=== PATIENT | female | born 1965 | race Caucasian/White ===

== ENCOUNTER 2017-01-23 12:28 | Emergency (ER) | payer MEDICAID ==
[~2017-01-23] VITALS: Ht 149.9 cm; Wt 58.0 kg
[2017-01-23 12:35] VITALS: Ht 149.9 cm; Wt 58.0 kg
--- NOTE | 2017-01-23 13:57 | RADRPT ---
PROCEDURE: US orbits. CLINICAL INDICATION: Bilateral visual disturbance. TECHNIQUE: High-resolution sonography of the orbits was performed in the axial and sagittal planes . COMPARISON: None. FINDINGS: There is mild right vitreous hemorrhage with subtle region of increased echogenicity. The right glob e is otherwise normal with no evidence of retinal detachment. The left globe is abnormal with a linear region in the posterior chamber posteriorly consistent with retinal detachment. There is mild associated vitreous hemorrhage. IMPRESSION: 1. Mild right vitreous hemorrhage. 2. Left vitreous hemorrhage and retinal detachment. RPTAT: QQ .Nura Walters MD, MD Date Time Electronically viewed and signed by .Nura Walters MD, MD on 01/23/2017 13:57 .R/
[2017-01-23 16:46] LABS: BASOPHIL # 0.1 10^3/ul (0.0-0.1); BASOPHILS % 0.6 % (0.0-2.0); EOSINOPHILS # 0.3 10^3/ul (0.0-0.5); EOSINOPHILS % 3.4 % (0.0-7.0); HEMATOCRIT 36.1 % (37.0-47.0); HEMOGLOBIN 12.1 g/dl (12.0-16.0); LYMPHOCYTES # 3.2 10^3/ul (0.8-2.9); LYMPHOCYTES % 40.3 % (15.0-51.0); MEAN CORPUSCULAR HGB CONC 33.5 g/dl (32.0-37.0); MEAN CORPUSCULAR VOLUME 83.6 fl (82.0-101.0); MEAN PLATELET VOLUME 11.2 fl (7.4-10.4); MONOCYTE # 0.6 10^3/ul (0.3-0.9); MONOCYTES % 7.7 % (0.0-11.0); NEUTROPHIL # 3.8 10^3/ul (1.6-7.5); NEUTROPHILS % 47.8 % (39.0-77.0); PLATELET COUNT 322 10^3/UL (140-415); RED BLOOD COUNT 4.32 10^6/ul (4.20-5.40); RED CELL DISTRIBUTION WIDTH 12.6 % (11.5-14.5)
[2017-01-23 18:17] LABS: INR 0.92; PROTIME 12.4 Sec (12.2-14.2)
[2017-01-23 18:18] LABS: PARTIAL THROMBOPLASTIN TIME 28.6 Sec (25.0-35.0)
--- NOTE | 2017-01-23 19:30 | ERD ---
ER Documentation Chief Complaint Chief Complaint BIB SELF C/O BILATERAL BLURRY VISION. HX OF DM. REFERRED HERE FOR [facility] YONAL HPI This 51-year-old female presents for blurry vision in both eyes going on for several years. She is a diabetic female. Today the patient seems to be worse than usual. Has had no headaches or eye pain. Blood sugars have been controlled. ROS All systems reviewed and are negative except as per history of present illness. Allergies Allergies: Coded Allergies: No Known Allergy (Unverified , 01/23/17) PMhx/Soc History of Surgery: No Anesthesia Reaction: No Hx Neurological Disorder: No Hx Respiratory Disorders: No Hx Cardiac Disorders: No Hx Psychiatric Problems: No Hx Miscellaneous Medical Probl: Yes (DM,HIGH CHOLESTEROL) Hx Alcohol Use: No Hx Substance Use: No Hx Tobacco Use: No Smoking Status: Never smoker Physical Exam Vitals Vital Signs Date Time Temp Pulse Resp B/P Pulse Ox O2 Delivery O2 Flow Rate FiO2 01/23/17 15:27 97.6 66 20 134/72 99 Room Air 01/23/17 12:35 97.6 102 20 134/76 99 Physical Exam Const: [] No distress Head: Atraumatic Eyes: Normal Conjunctiva, funduscopic exam normal except for mild opacity in both eyes when trying to examine retina. Vasculature appears within normal limits. EOMI, PERRLA ENT: Normal External Ears, Nose and Mouth.. Resp: Clear to auscultation bilaterally Cardio: Regular rate and rhythm, no murmurs Neur: Awake and alert 3, no focal deficits by normal ambulation and from bathroom without difficulty Psych: Normal Mood and Affect Result Diagram: 01/23/17 1630 Results 24 hrs Laboratory Tests Test 01/23/17 13:26 01/23/17 16:30 Bedside Glucose 167mg/dL White Blood Count 8.010^3/ul Red Blood Count 4.3210^6/ul Hemoglobin 12.1g/dl Hematocrit 36.1% Mean Corpuscular Volume 83.6fl Mean Corpuscular Hemoglobin 28.0pg Mean Corpuscular Hemoglobin Concent 33.5g/dl Red Cell Distribution Width 12.6% Platelet Count 94872^3/UL Mean Platelet Volume 11.2fl Neutrophils % 47.8% Lymphocytes % 40.3% Monocytes % 7.7% Eosinophils % 3.4% Basophils % 0.6% Nucleated Red Blood Cells % 0.0/100WBC Neutrophils # 3.810^3/ul Lymphocytes # 3.210^3/ul Monocytes # 0.610^3/ul Eosinophils # 0.310^3/ul Basophils # 0.110^3/ul Nucleated Red Blood Cells # 0.010^3/ul Prothrombin Time 12.4Sec Prothrombin Time Ratio 1.0 INR International Normalized Ratio 0.92 Activated Partial Thromboplast Time 28.6Sec Procedures/MDM Appearing vitreous hemorrhage bilaterally as well as a retinal detachment of left eye. I was expecting to have diabetic retinopathy as this has been a chronic elevation however this is an emergent condition. There is no ophthalmology at this facility and so patient has been attempted to be transferred. All [facility] including [facility] [place] to have no beds. [facility] was called and they do not currently have beds. [facility] was called and they do not currently have capacity. Orbital ultrasound interpretation: Bilateral vitreous hemorrhage with left retinal detachment. Departure Diagnosis: Primary Impression: Vitreous hemorrhage, bilateral Additional Impression: Retinal detachment, left Condition: Serious MIKE SWIFT DO Jan 23, 2017 19:30
[2017-01-23] MEDS ORDERED: ATOR20TA38 PO (21:30)
[2017-01-23] MEDS ORDERED: METF1000 PO (21:30)
[2017-01-23] MEDS ORDERED: GLIP2.5T3 PO (21:30)
[2017-01-23] MEDS ORDERED: TEMA7.5C PO ×2 (21:34)
[2017-01-23] MEDS ORDERED: FAMO40OR4 PO (21:34)
[2017-01-23 23:02] VITALS: BP 122/63; PULSE 71; RESP 20; TEMP 97.6
== END 2017-01-23 23:16 | disposition left against medical advice (07) ==
LOC: E/R 12:28
DX: H43.13 Vitreous hemorrhage, bilateral (principal); H33.22 Serous retinal detachment, left eye; E11.9 Type 2 diabetes mellitus without complications
CPT/HCPCS: 36415; 76536; 82962; 85025; 85610; 85730; Z7502